=== PATIENT | female | born 1965 | race Asian ===

== ENCOUNTER → 2025-02-21 | Outpatient (CLI) | payer BC | END | disposition home or self-care (01) | LOC: MAMMO 12:15 | DX: Z12.31 Encounter for screening mammogram for malignant neoplasm of breast (principal); Z13.820 Encounter for screening for osteoporosis; R92.323 Mammographic fibroglandular density, bilateral breasts; R92.1 Mammographic calcification found on diagnostic imaging of breast | CPT/HCPCS: 77063; 77067; 77080 ==